=== PATIENT | female | born 1950 | race Caucasian/White ===

== ENCOUNTER 2018-05-03 18:18 | Emergency (ER) | payer MEDICARE ==
--- NOTE | 2018-05-03 18:57 | RAD ---
SINGLE VIEW OF THE CHEST AND RIGHT RIB SERIES: 05/03/18 COMPARISON: None. HISTORY: Trauma to the chest with right rib pain. FINDINGS: Single view of the chest and three views of the right ribs shows a moderate right pleural effusion. T he cardiomediastinal silhouette is normal in size. There is no evidence of consolidation or mass. Views of the ribs show no displaced rib fractures. No underlying pleural thickening or pneumothorax a re seen. IMPRESSION: 1. No evidence of displaced rib fracture. 2. Moderate right pleural effusion. POS: [facility]
[2018-05-03 21:28] LABS: #Eosinphils 0.3 thou/uL (0.0-0.7); #Lymphocytes 0.9 thou/uL (1.20-3.40); #Monocytes 0.7 thou/uL (0.11-0.59); %Basophils 0.4 % (0.0-1.0); %Eosinophils 3.1 % (0.0-10.0); %Lymphocytes 9.3 % (21.0-51.0); %Monocytes 6.6 % (0.0-10.0); %Neutrophils 80.6 % (42.0-75.0); Hypochromia SLIGHT = 6-15 cells (100X) (0-5/hpf); MDiff Complete? YES; Mean Corpuscular HGB CONC 32.1 g/dL (32.0-36.0); Mean Corpuscular Hemoglobin 23.7 pg (27.0-31.0); Mean Corpuscular Volume 73.7 fL (78.0-98.0); Mean Platelet Volume 9.5 fL (7.4-10.4); Microcytosis SLIGHT = 6-15 cells (100X) (0-5/hpf); PLT Morphology Comment Appears Adequate; Platelet Count 194 thou/uL (130-400); RBC Distribution Width 15.4 % (11.5-14.5); Red Blood Cell (RBC) Count 4.22 mill/uL (4.20-5.40); White Blood Cell (WBC) Count 9.9 thou/uL (4.8-10.8)
[2018-05-03 21:33] LABS: ALT (SGPT) 19 U/L (8-55); AST (SGOT) 29 U/L (5-34); Albumin 3.6 g/dL (3.4-4.8); Alkaline Phosphatase 202 U/L (40-150); Anion Gap 13 mmol/L (10-20); BUN (Urea Nitrogen) 16 mg/dL (9.8-20.1); Bilirubin, Total 0.5 mg/dL (0.2-1.2); Calc. Creatinine Clearance 0 mL/min (70-130); Calcium 10.1 mg/dL (7.8-10.44); Carbon Dioxide 28 mmol/L (23-31); Chloride 98 mmol/L (98-107); Estimated GFR-MDRD 51; Globulin 4.3 g/dL (2.4-3.5); Glucose 168 mg/dL (80-115); Potassium 4.3 mmol/L (3.5-5.1); Protein, Total 7.9 g/dL (6.0-8.3); Sodium 135 mmol/L (136-145)
--- NOTE | 2018-05-03 22:26 | CT ---
CT OF THE CHEST WITHOUT AND WITH CONTRAST 05/03/18 COMPARISON: None. HISTORY: Dyspnea. Right rib pain after mechanical fall where she hit her ribs on the nightstand. Persistent pa in. TECHNIQUE: Multiple contiguous axial images were obtained in a CT of the chest without and with IV contrast. Cor onal reformats were performed. FINDINGS: Soft tissue density obscures the bronchus to the right lower lobe. There is complete collapse of the right lower lobe. In the central aspect of the right lower lobe, there appears to be a hypodense mass measuring at least 4.6 cm in size. A small right pleural effusion is seen. No other pulmonary nodule s are identified. There is an enlarged subcarinal lymph node measuring 2.8 cm in greatest dimension. Other smaller medi astinal lymph nodes are seen scattered throughout the mediastinum. There are innumerable lesions scattered throughout the liver concerning for hepatic metastases. The l argest measures at least 8.4 cm in size and is only partially imaged on this exam. There is a 2.0 cm right adrenal mass. A small amount of fluid is seen adjacent to the liver. The spleen is enlarged lencho suring 15.0 cm in size. There is also a cyst measuring 2.2 cm in the spleen. There are degenerative changes in the spine. The vertebral bodies have a mixed lytic and sclerotic ap pearance. This may simply be from degenerative change, but metastatic lesions to the spine cannot be excluded. No other suspicious osseous lesions are identified. There is a small nodule in the right breast measuring 9 mm in size. This is nonspecific. IMPRESSION: 1. Large right hilar mass obstructing the right lower lobe bronchus causing collapse of the righ t lower lobe. This most likely represents a primary pulmonary malignancy. 2. Small left pleural effusion. 3. Metastatic disease to the mediastinum. 4. Hepatic metastatic disease and small amount of ascites. 5. Right adrenal mass is concerning for metastatic disease. 6. Splenomegaly. 7. Degenerative changes in the spine. Metastatic lesions to the spine cannot be excluded. POS: [facility]
[2018-05-03] MEDS ORDERED: Ondansetron ODT 4 MG TAB ONE (22:43)
--- NOTE | 2018-05-04 15:35 | EKG ---
Test Reason : RIB PAIN Blood Pressure : / mmHG Vent. Rate : 096 BPM Atrial Rate : 096 BPM P-R Int : 164 ms QRS Dur : 098 ms QT Int : 366 ms P-R-T Axes : 032 -25 045 degrees QTc Int : 462 ms Normal sinus rhythm Incomplete right bundle branch block Borderline ECG Confirmed by CARRILLO MENDEZ ([id number]), tape editor LISANDRA ALDRICH ([id number]) on 05/04/2018 3:35:00 PM Referred By: VANESSA Confirmed By:CARRILLO MENDEZ
== END 2018-05-03 22:41 | disposition home or self-care (01) ==
LOC: ERS 18:18
DX: S20.211A Contusion of right front wall of thorax, initial encounter (principal); E11.9 Type 2 diabetes mellitus without complications; E78.5 Hyperlipidemia, unspecified; I10 Essential (primary) hypertension; F41.9 Anxiety disorder, unspecified; Z79.899 Other long term (current) drug therapy; W19.XXXA Unspecified fall, initial encounter
CPT/HCPCS: 71270; 80053; 83605; 84484; 85025; 93005; Q0162

== ENCOUNTER 2018-05-13 11:23 | Emergency (ER) | payer MEDICARE ==
[2018-05-13 13:01] LABS: ALT (SGPT) 15 U/L (8-55); AST (SGOT) 31 U/L (5-34); Albumin 3.4 g/dL (3.4-4.8); Alkaline Phosphatase 195 U/L (40-150); Anion Gap 18 mmol/L (10-20); BUN (Urea Nitrogen) 26 mg/dL (9.8-20.1); Bilirubin, Total 0.6 mg/dL (0.2-1.2); CK (CPK) 103 U/L (29-168); Calc. Creatinine Clearance 0 mL/min (70-130); Calcium 9.7 mg/dL (7.8-10.44); Carbon Dioxide 20 mmol/L (23-31); Chloride 100 mmol/L (98-107); Estimated GFR-MDRD 46; Globulin 4.1 g/dL (2.4-3.5); Glucose 106 mg/dL (80-115); Lipase 14 U/L (8-78); Potassium 5.5 mmol/L (3.5-5.1); Protein, Total 7.5 g/dL (6.0-8.3); Sodium 132 mmol/L (136-145)
[2018-05-13 13:18] LABS: Hemoglobin 9.6 g/dL (12.0-16.0); Mean Corpuscular HGB CONC 31.8 g/dL (32.0-36.0); Mean Corpuscular Hemoglobin 23.3 pg (27.0-31.0); Mean Corpuscular Volume 73.1 fL (78.0-98.0); Mean Platelet Volume 10.1 fL (7.4-10.4); Platelet Count 191 thou/uL (130-400); RBC Distribution Width 15.3 % (11.5-14.5); Red Blood Cell (RBC) Count 4.13 mill/uL (4.20-5.40); White Blood Cell (WBC) Count 15.4 thou/uL (4.8-10.8)
[2018-05-13 13:20] LABS: Anisocytosis SLIGHT = 6-15 cells (100X) (0-5/hpf); Band 10 % (5-11); Hypochromia SLIGHT = 6-15 cells (100X) (0-5/hpf); Lymphocytes 3 % (21-51); MDiff Complete? YES; Monocytes 2 % (0-10); Neutrophil 85 % (42-75); PLT Morphology Comment Appears Adequate
--- NOTE | 2018-05-13 14:44 | CT ---
CT ANGIOGRAM CHEST WITH CONTRAST: Date: 05/13/18 HISTORY: Chest pain. COMPARISON: CT chest dated 07/04/17. FINDINGS: CT angiogram of the chest performed after the intravenous administration of contrast. 3D rendering pr ovided. Due to the phase of contrast, there is poor delineation of the right hilar mass, although there is ex tension to the right mainstem bronchus and all lower lobe bronchi with complete consolidation right l kirby, as well as postobstructive pneumonitis. Large right layering pleural effusion. There is extrinsi c mass effect upon the right lower lobe pulmonary artery, axial image 51, although this is not felt t o be intraluminal. No definite proximal segmental or pulmonary arterial filling defect. There are abnormal prevascular lymph nodes measuring up to 11.0 mm in short axis. There are also abno rmal right pericardial lymph nodes measuring up to 9.0 mm in short axis. There are multiple metastati c foci throughout the liver. Metastatic foci are present in the spleen. There is a mass, although small, within the inferior right breast, measuring up to 9.0 mm, similar. No acute displaced rib fracture. No suspicious osteolytic or osteoblastic lesions. IMPRESSION: 1. Due to the phase of contrast, there is portal delineation of the known right hilar mass with some probable early mediastinal invasion with extension of tumor throughout the right mainstem bronchus a nd all lower lobe bronchi with postobstructive pneumonitis and collapse, as well as a similar layerin g large right pleural effusion. There are metastatic mediastinal lymph nodes, as well as metastasis, within the liver and spleen. 2. 9.0 mm right breast mass within the inferior breast, for which a nonemergent diagnostic ultrasoun d and mammogram are recommended. 3. Extrinsic mass effect upon the posterior segment right lower lobe pulmonary artery without a defi nite intraluminal defect. This is likely sequelae of the mass effect from the underlying mass and not an embolism. There are no definite pulmonary emboli in the pulmonary arteries. 4. Nondisplaced buckle fractures right anterior 6th, 7th, and 8th ribs. 5. No intraluminal pulmonary embolism. POS: [facility]
[2018-05-13] MEDS ORDERED: Iopamidol 370 76% 100 ML VIAL ONE (17:13)
== END 2018-05-13 15:02 | disposition home or self-care (01) ==
LOC: ERS 11:23
DX: R07.89 Other chest pain (principal); E11.9 Type 2 diabetes mellitus without complications; E78.5 Hyperlipidemia, unspecified; I10 Essential (primary) hypertension; F41.9 Anxiety disorder, unspecified; Z79.899 Other long term (current) drug therapy; Z79.84 Long term (current) use of oral hypoglycemic drugs
CPT/HCPCS: 36415; 71275; 80053; 82550; 83690; 84484; 85025; 93005

== ENCOUNTER 2018-05-16 20:23 | Inpatient (IN) | payer MEDICARE ==
[2018-05-16 21:01] LABS: Mean Corpuscular HGB CONC 30.4 g/dL (32.0-36.0); Mean Corpuscular Hemoglobin 22.6 pg (27.0-31.0); Mean Corpuscular Volume 74.4 fL (78.0-98.0); Mean Platelet Volume 9.9 fL (7.4-10.4); Platelet Count 272 thou/uL (130-400); RBC Distribution Width 15.5 % (11.5-14.5); Red Blood Cell (RBC) Count 4.41 mill/uL (4.20-5.40); White Blood Cell (WBC) Count 14.6 thou/uL (4.8-10.8)
[2018-05-16 21:17] LABS: Band 9 % (5-11); Hypochromia SLIGHT = 6-15 cells (100X) (0-5/hpf); Lymphocytes 1 % (21-51); MDiff Complete? YES; Microcytosis SLIGHT = 6-15 cells (100X) (0-5/hpf); Monocytes 2 % (0-10); Neutrophil 88 % (42-75)
[2018-05-16 21:21] LABS: ALT (SGPT) 11 U/L (8-55); AST (SGOT) 18 U/L (5-34); Albumin 3.2 g/dL (3.4-4.8); Alkaline Phosphatase 248 U/L (40-150); Anion Gap 19 mmol/L (10-20); BUN (Urea Nitrogen) 32 mg/dL (9.8-20.1); Bilirubin, Total 0.5 mg/dL (0.2-1.2); Calc. Creatinine Clearance 0 mL/min (70-130); Calcium 10.2 mg/dL (7.8-10.44); Carbon Dioxide 20 mmol/L (23-31); Chloride 101 mmol/L (98-107); Estimated GFR-MDRD 62; Globulin 4.3 g/dL (2.4-3.5); Glucose 158 mg/dL (80-115); Protein, Total 7.5 g/dL (6.0-8.3); Sodium 134 mmol/L (136-145)
--- NOTE | 2018-05-16 21:55 | CT ---
CT BRAIN 05/16/18 PROVIDED CLINICAL HISTORY: Fall with altered mental status. FINDINGS: The ventricular system appears normal in size and morphology. There is no evidence for intracranial h emorrhage, or mass effect. Chronic microvascular ischemic changes are seen. The extracranial soft tis sues and osseous structures demonstrate an unremarkable CT appearance. IMPRESSION: No evidence for intracranial hemorrhage or mass effect. POS: [facility]
--- NOTE | 2018-05-16 21:57 | RAD ---
PORTABLE CHEST 05/16/18 PROVIDED CLINICAL HISTORY: Fall. FINDINGS: Comparison 04/23/[address] pulmonary angiogram of 05/13/18. The cardiac silhouette remains enlarged. There is right basilar pleural parenchymal opacity, possibly due to volume loss on the basis of known right hilar mass. The left lung appears clear. There is no evidence for pneumothorax. IMPRESSION: Cardiomegaly and right basilar pleural parenchymal opacity. Please refer to CT pulmonary angiogram re port of 05/13/18 for further details. POS: [facility]
[2018-05-16 22:23] LABS: Bilirubin Small (Negative); Blood, Urine Negative (Negative); Clarity CLOUDY (Clear); Glucose, Urine (Dipstick) Negative (Negative); Leukocyte Trace (Negative); Nitrite Negative (Negative); Protein, Urine (Dipstick) 100 mg/dL (Neg-Trace); Specific Gravity, Urine 1.022 (1.002-1.036); pH, Urine 5.5 (5.0-9.0)
[2018-05-16 22:26] LABS: Bacteria/HPF None Seen HPF (None Seen); RBC/HPF 0-3 HPF (0-3); Squamous Epithelial 0-3 HPF (0-3); WBC/HPF 0-3 HPF (0-3)
[2018-05-16 22:28] LABS: Hyaline Casts/LPF 0-3 HYALINE CAST LPF (0-3 Hyaline); Pathc Cast-AUWi Flag 4.21 (0-2.49)
[2018-05-16 22:34] LABS: Anion Gap 17 mmol/L (10-20); BUN (Urea Nitrogen) 32 mg/dL (9.8-20.1); Calc. Creatinine Clearance 0 mL/min (70-130); Calcium 9.8 mg/dL (7.8-10.44); Carbon Dioxide 21 mmol/L (23-31); Chloride 102 mmol/L (98-107); Estimated GFR-MDRD 64; Glucose 152 mg/dL (80-115); Sodium 134 mmol/L (136-145)
[2018-05-16] MEDS ORDERED: Dextrose 50% Abboject 50 ML SYRINGE ONE (22:59)
[2018-05-16] MEDS ORDERED: Insulin Regular 300 UNITS/3 ML VIAL ONE (22:59)
[2018-05-16] MEDS ORDERED: cefTRIAXone\\ROCEPHIN 2 GM VIAL ONE (22:59)
[2018-05-16] MEDS ORDERED: Calcium Chloride 1 GM/10 ML Abboject SYRINGE ONE (22:59)
[2018-05-16] MEDS ORDERED: Azithromycin 500 MG in Sodium Chloride 0.9% 250 ML 250 ML IVPB SCH (23:15)
[2018-05-17] MEDS ORDERED: Acetaminophen 325 MG TAB PO PRN (00:46)
[2018-05-17] MEDS ORDERED: Dextrose 50% Abboject 50 ML SYRINGE SLOW IVP PRN (00:50)
[2018-05-17] MEDS ORDERED: Dextrose 5% in Water 1,000 ML IV PRN (00:50)
[2018-05-17 04:09] LABS: Anion Gap 16 mmol/L (10-20); BUN (Urea Nitrogen) 31 mg/dL (9.8-20.1); Calc. Creatinine Clearance 0 mL/min (70-130); Calcium 10.2 mg/dL (7.8-10.44); Carbon Dioxide 20 mmol/L (23-31); Chloride 106 mmol/L (98-107); Estimated GFR-MDRD 64; Glucose 140 mg/dL (80-115); Potassium 5.3 mmol/L (3.5-5.1); Sodium 137 mmol/L (136-145)
--- NOTE | 2018-05-17 04:12 | HP ---
HISTORY OF PRESENT ILLNESS: A 67-year-old female with a diagnosis of bronchogenic carcinoma. She underwent bronchial biopsy performed by Dr. Rosales approximately 6 days ago. Today, she developed weakness, dizziness, lightheadedness, multiple falls, and poor p.o. intake. She has been found to have a right lower lobe mass by chest x-ray with possible pneumonia associated with this. She was also found to be hyperkalemic. There has been no report of nausea, vomiting, or diarrhea. She was seen and evaluated in the emergency room. CT scan of brain was done, which showed no evidence of new metastatic lesions. CT scan of chest done several days ago does show fractures of the right 6, 7, and 8 ribs. At this time, she has no other complaints other than feeling weak and dizzy. There has been no reported nausea or vomiting. She does have a history of type 2 diabetes mellitus. Family notes she was seen to be hallucinating this morning. She notes some coughing at this time. ALLERGIES: SHE HAS NO KNOWN ALLERGIES. CURRENT MEDICATIONS ARE: 1. Glucosamine. 2. Reglan 10 mg 3 times a day. 3. Iron 1 tablet daily. 4. Lyrica 50 mg 3 times a day. 5. Diclofenac 75 mg daily. 6. Amlodipine 5 mg daily. 7. Simvastatin 20 mg daily. 8. Atenolol 50 mg daily. 9. Glimepiride 4 mg daily. 10. Clonidine 0.2 mg q.a.m. 11. Hydrochlorothiazide 25 mg daily. 12. Potassium 10 mEq daily. 13. Tylenol No. 3 as needed for pain. 14. Zofran. 15. Metformin. 16. In addition, she is also on pioglitazone. PAST MEDICAL HISTORY: Surgical history is positive for bladder suspension, appendectomy, cholecystectomy, repair of bowel obstruction. Medical history is positive for type 2 diabetes mellitus, hyperlipidemia, hypertension. SOCIAL AND PERSONAL HISTORY: She does not smoke nor does she drink alcohol. She currently lives alone with her son nearby. REVIEW OF SYSTEMS: Noncontributory. FAMILY HISTORY: Noncontributory. PHYSICAL EXAMINATION: VITAL SIGNS: Pulse is 118, BP is 130/64, respirations 22, O2 saturation is 97% on 2 L. HEENT: Normocephalic, atraumatic. Sclerae and conjunctivae are clear. NECK: Supple. Full range of motion. No masses. LUNGS: Bilateral breath sounds. No evidence of wheezes, rhonchi, or rales. HEART: Reveals tachycardia without murmurs, gallops, or rubs. ABDOMEN: Slightly distended. Bowel sounds are present and active. No hepatosplenomegaly is noted. There is no evidence of any rebound or guarding otherwise noted. EXTREMITIES: No evidence of any clubbing, edema, or cyanosis. NEUROLOGICAL: She is alert and oriented x3. She recalls my name. She recognizes me upon examination as her physician. LABORATORY DATA: Her hemoglobin is 13.0, hematocrit 38.8, white blood count 14.6. Sodium 134, potassium 6.0, chloride 101, CO2 of 20, BUN 32, creatinine 0.9. Urinalysis, otherwise, clear. CT scan of brain, no evidence of any cranial mass or lesions. Chest x-ray reported as body of the report. Previous CT scan from May 03, 2018, on most recent visit, did show a large right hilar mass with obstructing to the right lower lobe bronchus, small pleural effusion, metastatic disease in mediastinum with hepatic metastatic disease as well, small amount of ascites. IMPRESSION: This is a 67-year-old female, 1. Was now confirmed of squamous cell carcinoma of the lung metastatic. 2. Possible postobstructive malignancy pneumonia. 3. Hyperkalemia. 4. Type 2 diabetes mellitus. 5. Hypertension. PLAN: 1. The patient will be admitted to telemetry, would be maintained on IV antibiotics and IV fluids. 2. Consult Dr. Rosales for further treatment recommendations. 3. Consult Oncology for further treatment recommendations. 4. I have discussed extensively with her and her family present. 5. Code status, she wishes to be a full DNR. She verbalizes both to me and her family without hesitation or equivocation. Job ID: [id number]
[2018-05-17 04:18] LABS: Hemoglobin 9.1 g/dL (12.0-16.0); Mean Corpuscular HGB CONC 30.5 g/dL (32.0-36.0); Mean Corpuscular Hemoglobin 22.9 pg (27.0-31.0); Mean Corpuscular Volume 75.1 fL (78.0-98.0); Mean Platelet Volume 9.7 fL (7.4-10.4); Platelet Count 294 thou/uL (130-400); RBC Distribution Width 15.5 % (11.5-14.5); Red Blood Cell (RBC) Count 3.97 mill/uL (4.20-5.40); White Blood Cell (WBC) Count 15.3 thou/uL (4.8-10.8)
[2018-05-17 04:31] LABS: Band 8 % (5-11); Eosinophils 1 % (0-10); Lymphocytes 4 % (21-51); MDiff Complete? YES; Monocytes 7 % (0-10); Neutrophil 80 % (42-75)
--- NOTE | 2018-05-17 11:33 | CON ---
DATE OF CONSULTATION: 05/17/2018 TIME SPENT: This encompassed 70 minutes of the time, of that time, greater than 50% was spent with the patient and/or the patient's unit in the hospital. HISTORY OF PRESENT ILLNESS: This is a 67-year-old female, who came to the emergency room last night with increasing shortness of breath, fever, and congestion. She has recently been diagnosed with squamous cell carcinoma of the bronchus intermedius extending into the right middle lobe. She probably has a postobstructive pneumonia from that. From what I understand, she also has lesions in the liver and nondisplaced fractures of her 6th, 7th, 8th ribs on the right. She has mediastinal lymph nodes and some splenic metastasis. PAST MEDICAL HISTORY: 1. Recent diagnosis of lung cancer. 2. Type 2 diabetes mellitus. 3. Hyperlipidemia. 4. Hypertension. PAST SURGICAL HISTORY: 1. Bladder suspension. 2. Appendectomy. 3. Cholecystectomy. 4. Repair of bowel obstruction. ALLERGIES: NONE. MEDICATIONS: Prior to admission; 1. Glucosamine. 2. Reglan. 3. Iron. 4. Lyrica. 5. Diclofenac. 6. Amlodipine. 7. Simvastatin. 8. Atenolol. 9. Glimepiride. 10. Clonidine. 11. Hydrochlorothiazide. 12. Potassium. 13. Tylenol No. 3. 14. Zofran. 15. Metformin. 16. Pioglitazone. SOCIAL HISTORY: Nonsmoker, quit about 3 years ago. Does not consume alcohol. REVIEW OF SYSTEMS: Twelve-point review of systems is otherwise negative. FAMILY MEDICAL HISTORY: Negative. PHYSICAL EXAMINATION: VITAL SIGNS: Pulse 120, blood pressure 130/64, O2 saturation 97% on 2 L, and respiratory rate 22. GENERAL: This patient is awake, alert, and in no acute distress. HEENT: Pupils are reactive. Sclerae are anicteric. Oropharynx is clear. NECK: Without adenopathy or JVD. LUNGS: Slightly diminished breath sounds on the right compared to left. CARDIAC: S1 and S2, slightly tachycardic. ABDOMEN: Obese, soft, and nontender. EXTREMITIES: No clubbing, cyanosis, or edema. NEUROLOGIC: Grossly intact throughout. LABORATORY DATA: White blood cell count 15.3, hematocrit 29.8, and platelet count 294. Sodium 137, potassium 5.3, chloride 106, CO2 of 20, BUN 31, creatinine 0.8, glucose 140, calcium 10.2, and albumin 3.2. IMAGING STUDIES: Chest x-ray shows right middle lobe infiltrate. Brain CT negative for hemorrhage or mass effect. ASSESSMENT: 1. Postobstructive pneumonia. 2. Metastatic squamous cell carcinoma of the lung. PLAN: 1. Treatment with IV antibiotics, nebulization therapy, and steroids. 2. Given his postobstructive pneumonia, I will go ahead and change the Rocephin to Zosyn to give her some anaerobic coverage. 3. Agree with Oncology consultation. 4. Gentle IV fluid resuscitation. Job ID: [id number]
[2018-05-17] MEDS: Sodium Chloride 0.9% 1,000 ML IV SCH (12:00)
[2018-05-17] MEDS ORDERED: Ondansetron ODT 4 MG TAB ONE (12:45)
[2018-05-17] MEDS ORDERED: Sodium Chloride 0.9% 100 ML ONE (12:45)
[2018-05-17] MEDS ORDERED: Piperacillin/Tazobactam 3.375 GM VIAL ONE (12:45)
[2018-05-17] MEDS: Piperacillin/Tazobactam 3.375 GM in Sodium Chloride 0.9% 100 ML IVPB SCH ×2 (12:57→18:22)
[2018-05-17] MEDS: Ondansetron ODT 4 MG TAB PO PRN ×2 (12:59→19:17)
[2018-05-17 15:49] LABS: Anion Gap 17 mmol/L (10-20); BUN (Urea Nitrogen) 27 mg/dL (9.8-20.1); Calc. Creatinine Clearance 84 mL/min (70-130); Calcium 10.4 mg/dL (7.8-10.44); Carbon Dioxide 23 mmol/L (23-31); Chloride 103 mmol/L (98-107); Estimated GFR-MDRD 70; Glucose 170 mg/dL (80-115); Potassium 4.8 mmol/L (3.5-5.1); Sodium 138 mmol/L (136-145)
[2018-05-17] MEDS: Insulin Regular 300 UNITS/3 ML VIAL SC PRN ×2 (18:15→21:04)
[2018-05-17] MEDS ORDERED: Amlodipine 5 MG TAB PO SCH (20:00)
[2018-05-17] MEDS ORDERED: cloNIDine 0.2 MG TAB PO SCH (20:00)
--- NOTE | 2018-05-17 21:46 | PRG ---
DATE OF SERVICE: 05/17/2018 SUBJECTIVE: Ms. Sanchez is resting comfortably. She unfortunately has not been able to get in the hospital bed. OBJECTIVE: VITAL SIGNS: Temperature 97.7, pulse 100, respirations 20, O2 saturations 95% on 2 L, and blood pressure 159/95. LUNGS: Clear. HEART: Reveals no murmur. LABORATORY DATA: Hemoglobin is 9.1, hematocrit 29.8. Potassium 5.3. Glucoses are adequately controlled. IMPRESSION: 1. Metastatic squamous cell carcinoma, lung. 2. Obstructive pneumonia. PLAN: I have discussed the findings with the patient. She is fully aware of the nature of the disease. We will get Oncology consult. Continue current antibiotic regimen. Pulmonary has been advised to see her. Hopefully, we can get her bed soon. Job ID: [id number]
--- NOTE | 2018-05-17 22:35 | CON ---
DATE OF CONSULTATION: REASON FOR CONSULT: Lung cancer. HISTORY OF PRESENT ILLNESS: Ms. Sanchez is a pleasant 67-year-old female who had a bronchoscopy approximately six days ago. Bronchial washing was positive for squamous cell carcinoma. She presented to the emergency room today with altered mental status and weakness. She was diagnosed with postobstructive pneumonia. The patient was initially seen by Dr. Rosales in late 2018. She was noted to have a right hilar mass and a biopsy was obtained by fiberoptic bronchoscopy from bronchial washings. The patient does have a history of tobacco use. She quit in 2015. 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 She denies any shortness of breath. No weight loss. She does complain of increasing abdominal girth. She had a recent chest CT scan showed the right hilar mass with extension to the right mainstem bronchus. There was a large right pleural effusion and metastatic lesions seen throughout the liver and the spleen. There was also a 9 mm right breast mass. PAST MEDICAL HISTORY: 1. Diabetes. 2. Hyperlipidemia. 3. Hypertension. 4. Fibromyalgia. 5. Fallopian tube carcinoma. PAST SURGICAL HISTORY: 1. Hysterectomy. 2. Open cholecystectomy. 3. Appendectomy. 4. Bladder suspension. ALLERGIES: NO KNOWN DRUG ALLERGIES. HOME MEDICATIONS: 1. Reglan t.i.d. 2. Iron daily. 3. Lyrica t.i.d. 4. Diclofenac 75 mg daily. 5. Amlodipine daily. 6. Simvastatin daily. 7. Atenolol daily. 8. Glimepiride daily. 9. Clonidine daily. 10. Hydrochlorothiazide daily. 11. Potassium 10 mEq daily. 12. Metformin daily. FAMILY HISTORY: No immediate family history of cancer. SOCIAL HISTORY: . History of smoking. No alcohol or illicit drug use. REVIEW OF SYSTEMS: 10-point review of systems is negative except for noted in the HPI. PHYSICAL EXAMINATION: VITAL SIGNS: Temperature is 98.4, pulse is 110, respiratory rate 20, BP is 185/ 82, she is 98% on 2 L. GENERAL: Well-developed, well-nourished female in no acute distress. HEENT: Normocephalic, atraumatic. Pupils equal and reactive to light. NECK: Supple. CV: Has a regular rate and rhythm. LUNGS: Clear anteriorly. ABDOMEN: Distended. Bowel sounds are positive. There is no hepatosplenomegaly. EXTREMITIES: No clubbing, cyanosis, or edema. SKIN: No rash. HEMATOLOGICAL: No petechiae or purpura. NEUROLOGICAL: Nonfocal. PSYCH: The patient is alert, oriented and appropriate. PERTINENT LABS AND AND X-RAYS: Current WBCs 15.3, hemoglobin 9.1, hematocrit 29.8, platelet count is 294,000, 80% neutrophils, 4% lymphocytes. Sodium is 138, potassium 4.8, chloride is 103, CO2 is 23, BUN is 27, creatinine 0.81, calcium is 10.4, serum total protein is 7.5, albumin 3.2, globulin 4.3. Radiology per HPI. ASSESSMENT: 1. Non-small cell lung cancer, squamous type. 2. Postobstructive pneumonia. DISCUSSION: The patient has been started on antibiotics. She has no respiratory distress at this time. Her biopsy was obtained from bronchial washings. so unfortunately, there is not adequate issue for molecular testing. We discussed a CT-guided biopsy of her liver in order to get tissue required for molecular testing as this is significant for treatment. She has agreed. Plan tomorrow if possible, otherwise on Monday. She will then follow up in the outpatient setting to discuss treatment options. Discussed with Dr. Daley who will see the patient later today. Thank you for the consult. Job ID: [id number] [facility]PITALJake
[2018-05-17] MEDS ORDERED: cefTRIAXone\\ROCEPHIN 1 GM in Sodium Chloride 0.9% 100 ML IVPB SCH (23:00)
[2018-05-18] MEDS: Piperacillin/Tazobactam 3.375 GM in Sodium Chloride 0.9% 100 ML IVPB SCH ×4 (00:58→18:24)
[2018-05-18 05:35] LABS: INR-International Normal Ratio 1.3; PTT 49.8 SEC (22.9-36.1); Prothrombin Time 16.4 SEC (12.0-14.7)
[2018-05-18] MEDS: Sodium Chloride 0.9% 1,000 ML IV SCH ×2 (06:04→17:22)
[2018-05-18] MEDS: Pioglitazone HCl 15 MG TAB PO SCH (08:31)
[2018-05-18] MEDS: Amlodipine 5 MG TAB PO SCH (08:31)
[2018-05-18] MEDS: Glimepiride 4 MG TAB PO SCH ×2 (08:31→21:00)
[2018-05-18] MEDS ORDERED: Non-Formulary Item 1 EACH (Esomeprazole Magnesium [Nexium 24hr] 40 MG) PO SCH (09:00)
[2018-05-18] MEDS ORDERED: Non-Formulary Item 1 EACH (Pioglitazone Hcl [Pioglitazone Hcl] 30 MG) PO SCH (09:00)
--- NOTE | 2018-05-18 10:57 | MRI ---
MRI BRAIN WITH AND WITHOUT CONTRAST: Date: 05-18-18 Comparison: None. History: Metastatic lung cancer, headache, imbalance. Technique: Multiplanar, multisequence MR imaging of the brain is obtained with and without contrast. FINDINGS: The diffusion weighted imaging demonstrates no evidence for acute infarction. The axial gradient echo imaging demonstrates no evidence for intracranial hemorrhage. Numerous foci of increased T2 and FLAIR signal are seen within the periventricular, deep, and subcort ical white matter, evidence of small vessel disease. Similar patchy increased signal is seen within t he mela. There is mild diffuse cerebral volume loss with associated prominence or CFF containing spac es. There is mild mucosal thickening involving the alveolar recess of the maxillary sinus on the left . Arterial flow voids at the axial level of the skull base appear unremarkable on the T2 weighted imagi ng. The post contrast imaging demonstrates no abnormal enhancement within the brain parenchyma. IMPRESSION: 1. Small vessel disease and cerebral volume loss. No acute infarction, intracranial hemorrhage or int racranial mass lesion. POS: [facility]
[2018-05-18] MEDS: Ondansetron ODT 4 MG TAB PO PRN ×2 (10:58→18:24)
[2018-05-18] MEDS ORDERED: Iopamidol 370 76% 100 ML VIAL ONE (11:25)
--- NOTE | 2018-05-18 11:54 | PRG ---
DATE OF SERVICE: 05/18/2018 SUBJECTIVE: She is nauseated and having emesis. She states her breathing is better. OBJECTIVE: VITAL SIGNS: Temperature 97.6, pulse 102, respirations 16, O2 saturation 92% on room air, blood pressure 152/72. HEENT: Unremarkable. NECK: No JVD. LUNGS: Diminished breath sounds at right base compared to left. CARDIAC: S1, S2. Regular. ABDOMEN: Soft. EXTREMITIES: No edema. IMAGING DATA: Her brain MRI demonstrated no evidence of mass lesion. LABORATORY DATA: White blood cell count 15.3, hematocrit 29.8, and platelet count 294. ASSESSMENT: Postobstructive pneumonia, squamous cell carcinoma of the lung. PLAN: Continue antibiotics, steroids, nebulization treatments. Job ID: [id number]
[2018-05-18] MEDS: Insulin Regular 300 UNITS/3 ML VIAL SC PRN (12:35)
--- NOTE | 2018-05-18 14:48 | PRG ---
DATE OF SERVICE: 05/18/2018 SUBJECTIVE: Ms. Sanchez is now in her hospital room. She is resting fairly comfortably. No other medical complaints are noted. OBJECTIVE: VITAL SIGNS: Her blood pressure is 171/77, O2 sat is 96% on 1.5 L, and temperature 98.8. LUNGS: Reveal bilateral breath sounds. HEART: Reveals a regular rate and rhythm. No murmurs, gallops, or rubs. LABORATORY DATA: Potassium is now 4.8. Blood sugars were adequately controlled. They were slightly elevated due to the fact that she probably on steroids. IMPRESSION: 1. Metastatic squamous cell carcinoma. 2. Type 2 diabetes mellitus. PLAN: She is to undergo a percutaneous liver biopsy today for further evaluation. Once all those information can be gathered, she will be making decisions regarding her future care. Otherwise, she is to continue her current medications, antibiotic, steroids, breathing treatments. Job ID: [id number]
--- NOTE | 2018-05-18 15:44 | CT ---
CT OF THE ABDOMEN AND PELVIS WITH CONTRAST: Date: 05/18/18 COMPARISON: 05/13/18, 06/16/15. HISTORY: Lung cancer with hepatic masses seen on CT. TECHNIQUE: Multiple contiguous axial images were obtained in a CT of the abdomen and pelvis with contrast. PO co ntrast was administered. Coronal reformats were performed. FINDINGS: There are numerous scattered masses seen throughout the liver, measuring up to 7.0 cm in size. These are consistent with hepatic metastases. There is a small amount of ascites adjacent to the liver and in the pelvis. A hypodensity in the spleen measuring 2.4 cm in size is well circumscribed and may rep resent a cyst. There is a nonobstructing 1-2 mm calcification in the right kidney. The left kidney, l eft adrenal gland, and pancreas are unremarkable. There is a right adrenal mass measuring approximate ly 2.2 cm in size. The large and small bowel are unremarkable. There are a few nodules anterior to the left colon measur ing up to 1.3 cm in size. These are nonspecific. No enlarged retroperitoneal lymph nodes are seen. At herosclerotic calcifications are seen in the aorta. There is atelectasis at the right lung base and a mass in the right hilar region. A small right pleur al effusion is present. Degenerative changes are seen in the spine. No obvious focal metastatic lesio ns are seen in the skeleton. The abdominal wall soft tissues are unremarkable. IMPRESSION: 1. Multiple hepatic metastatic lesions. 2. Right adrenal metastasis. 3. Possible splenic cysts. 4. Nonobstructing right renal calcification. 5. Nonspecific nodules anterior to the left colon, could potentially represent metastases. These are nonspecific. These were not seen on the prior CT of the abdomen from 2016. 6. Right hilar lung mass with collapse of right lower lobe and pleural effusion, consistent with pat ient's diagnosis of lung cancer. POS: [facility]
[2018-05-18] MEDS: HYDROcodone/Acetaminophen 5/325 mg Tablet PO PRN (21:00)
[2018-05-18] MEDS: cloNIDine 0.2 MG TAB PO SCH (21:00)
[2018-05-19] MEDS: Piperacillin/Tazobactam 3.375 GM in Sodium Chloride 0.9% 100 ML IVPB SCH ×4 (01:17→18:10)
[2018-05-19 06:00] LABS: Anion Gap 16 mmol/L (10-20); BUN (Urea Nitrogen) 18 mg/dL (9.8-20.1); Calc. Creatinine Clearance 89 mL/min (70-130); Carbon Dioxide 20 mmol/L (23-31); Chloride 106 mmol/L (98-107); Estimated GFR-MDRD 75; Glucose 135 mg/dL (80-115); Sodium 137 mmol/L (136-145)
[2018-05-19] MEDS: Sodium Chloride 0.9% 1,000 ML IV SCH ×2 (06:08→20:18)
[2018-05-19] MEDS: HYDROcodone/Acetaminophen 5/325 mg Tablet PO PRN ×4 (06:18→20:12)
[2018-05-19] MEDS: Ondansetron ODT 4 MG TAB PO PRN ×2 (06:19→16:16)
[2018-05-19] MEDS: Amlodipine 5 MG TAB PO SCH (08:09)
[2018-05-19] MEDS: Glimepiride 4 MG TAB PO SCH ×2 (08:09→20:11)
[2018-05-19] MEDS: Pioglitazone HCl 15 MG TAB PO SCH (08:10)
--- NOTE | 2018-05-19 10:01 | PRG ---
DATE OF SERVICE: 05/19/2018 PRIMARY CARE PHYSICIAN: Dr. Macho Mascorro. SUBJECTIVE: The patient appears comfortable. She complains of some left chest wall tenderness, likely secondary to when her son tried to lift her up off the floor. Denies other chest pain or shortness of breath. She is tolerating her diet. She is ambulating in the room with minimal difficulty. OBJECTIVE: VITAL SIGNS: Temperature 98.3, pulse is 79, respirations 18 to 20, blood pressure 151/70, and pulse ox 94% on 1 L nasal cannula. GENERAL: She is awake and alert, in no acute distress. HEENT: Mucosa is moist. NECK: Supple. HEART: Regular rate and rhythm. LUNGS: Decreased breath sounds on the right. ABDOMEN: Soft. EXTREMITIES: No edema. LABORATORY DATA: Sodium 137, potassium 5.0, chloride 106, CO2 of 20, BUN and creatinine 18 and 0.76 with a GFR of 75, serum glucose of 135, calcium 10.0. Abdominal and pelvic CT once again reveals multiple areas of metastatic lesions in the liver, right adrenal, left colon, and again right hilar lung mass with collapse of the right lower lobe. Brain MRI also revealing small-vessel disease. No infarction. No hemorrhages. No intracranial mass is seen. ASSESSMENT AND PLAN: 1. This is a 67-year-old female patient of Dr. Macho Mascorro with a new diagnosis of non-small cell lung cancer, squamous type, and postobstructive pneumonia. We will continue antibiotics and treatment for her pneumonia. 2. Lung cancer. Further plan per Oncology, planning for possible liver biopsy on Monday. 3. Type 2 diabetes, appears to be stable. Continue therapies. Job ID: [id number]
--- NOTE | 2018-05-19 13:13 | PRG ---
DATE OF SERVICE: 05/19/2018 SUBJECTIVE: Still having difficulty breathing, coughing, and some dark yellow sputum. OBJECTIVE: VITAL SIGNS: Temperature was 98, blood pressure 151/70, and respirations 18. CHEST: Decreased breath sounds. No wheezing. CARDIAC: Normal S1 and S2. No gallops. ABDOMEN: No masses. IMPRESSION: Pneumonia and metastatic squamous cell carcinoma. PLAN: She is on neb treatments, empiric antibiotics, and steroids. She will continue. PT has been ordered. Job ID: [id number]
[2018-05-19] MEDS: cloNIDine 0.2 MG TAB PO SCH (20:10)
[2018-05-20] MEDS: HYDROcodone/Acetaminophen 5/325 mg Tablet PO PRN ×5 (00:27→20:19)
[2018-05-20] MEDS: Piperacillin/Tazobactam 3.375 GM in Sodium Chloride 0.9% 100 ML IVPB SCH ×5 (00:28→23:54)
[2018-05-20] MEDS: Ondansetron ODT 4 MG TAB PO PRN ×2 (05:27→16:19)
[2018-05-20] MEDS: Amlodipine 5 MG TAB PO SCH (09:05)
[2018-05-20] MEDS: Glimepiride 4 MG TAB PO SCH ×2 (09:05→20:20)
--- NOTE | 2018-05-20 09:36 | PRG ---
DATE OF SERVICE: 05/20/2018 PRIMARY CARE PHYSICIAN: Macho Mascorro MD SUBJECTIVE: The patient complains of some shortness of breath at times. She states that she continues to have some left-sided chest wall tenderness. She continues to ambulate in the room. No fevers or chills. Cough appears to be improved. OBJECTIVE: VITAL SIGNS: Temperature 98, pulse of 90, respirations 15 to 24, blood pressure 166 to 195 over 74 to 99, pulse ox of 89 to 94 on 2 L nasal cannula. GENERAL: She is awake and alert. Appears fatigued. No acute distress. Mucosa is moist. NECK: Supple. HEART: Regular rate and rhythm. LUNGS: Decreased breath sounds, worse on the right side. Some scattered rhonchi. Chest wall is tender on the left lateral aspect. ABDOMEN: Soft. EXTREMITIES: With no edema. LABORATORY DATA: Accu-Cheks are 145, 159, 161, 164. Chest x-ray, brain MRI, abdominal and pelvis CT reviewed. ASSESSMENT AND PLAN: 1. A 67-year-old female patient admitted for pneumonia with new diagnosis of non-small cell lung cancer and postobstructive pneumonia. Continue antibiotics. 2. Lung cancer. Further plan per Oncology. Multiple metastatic lesions, possible liver biopsy tomorrow. 3. Type 2 diabetes. We will continue her therapies 1st with insulin sliding scale while she is on her steroid therapy. 4. Hypertension. Continue medications. We will increase her medications for better control. Job ID: [id number]
[2018-05-20] MEDS ORDERED: Lorazepam 2 MG/ML VIAL SLOW IVP SCH (09:45)
[2018-05-20] MEDS ORDERED: Losartan 25 MG TAB PO SCH (09:45)
[2018-05-20] MEDS: Sodium Chloride 0.9% 1,000 ML IV SCH (10:52)
[2018-05-20] MEDS: Pioglitazone HCl 15 MG TAB PO SCH (10:59)
--- NOTE | 2018-05-20 13:00 | PRG ---
DATE OF SERVICE: 05/20/2018 SUBJECTIVE: Elva Sanchez is better. She is nauseated, but better. She is able to tolerate Ensure. No headache. No cough. OBJECTIVE: VITAL SIGNS: Saturations are 98% on 1 L, pulse 60, temperature 98, blood pressure is 195/99. CHEST: Decreased breath sounds without any wheezing. CARDIAC: Normal S1 and S2. ABDOMEN: Negative mass. IMPRESSION: Metastatic lung cancer. Nausea and vomiting, improved. PLAN: She can probably switch over to oral antibiotics in the next day or two. Disposition, home thereafter. Job ID: [id number]
[2018-05-20] MEDS: cloNIDine 0.2 MG TAB PO SCH (20:20)
[2018-05-20] MEDS: hydrALAZINE 20 MG/ML VIAL SLOW IVP PRN (21:21)
[2018-05-21] MEDS: HYDROcodone/Acetaminophen 5/325 mg Tablet PO PRN ×6 (00:01→23:32)
[2018-05-21] MEDS: hydrALAZINE 20 MG/ML VIAL SLOW IVP PRN ×6 (00:24→20:42)
[2018-05-21] MEDS: Sodium Chloride 0.9% 1,000 ML IV SCH ×2 (01:27→18:24)
[2018-05-21 05:15] LABS: ALT (SGPT) 19 U/L (8-55); AST (SGOT) 20 U/L (5-34); Albumin 3.1 g/dL (3.4-4.8); Alkaline Phosphatase 181 U/L (40-150); Anion Gap 14 mmol/L (10-20); BUN (Urea Nitrogen) 19 mg/dL (9.8-20.1); Bilirubin, Total 0.4 mg/dL (0.2-1.2); Calc. Creatinine Clearance 91 mL/min (70-130); Calcium 9.2 mg/dL (7.8-10.44); Carbon Dioxide 24 mmol/L (23-31); Chloride 105 mmol/L (98-107); Estimated GFR-MDRD 78; Globulin 3.4 g/dL (2.4-3.5); Glucose 176 mg/dL (80-115); Potassium 4.1 mmol/L (3.5-5.1); Protein, Total 6.5 g/dL (6.0-8.3); Sodium 139 mmol/L (136-145)
[2018-05-21 05:19] LABS: Band 1 % (5-11); Hemoglobin 9.6 g/dL (12.0-16.0); Hypochromia SLIGHT = 6-15 cells (100X) (0-5/hpf); Lymphocytes 2 % (21-51); MDiff Complete? YES; Mean Corpuscular HGB CONC 31.4 g/dL (32.0-36.0); Mean Corpuscular Hemoglobin 22.9 pg (27.0-31.0); Mean Corpuscular Volume 73.1 fL (78.0-98.0); Mean Platelet Volume 8.8 fL (7.4-10.4); Microcytosis SLIGHT = 6-15 cells (100X) (0-5/hpf); Monocytes 4 % (0-10); Neutrophil 93 % (42-75); Platelet Count 309 thou/uL (130-400); Platelet Morphology Comment Appears Adequate; White Blood Cell (WBC) Count 25.8 thou/uL (4.8-10.8)
[2018-05-21] MEDS: Piperacillin/Tazobactam 3.375 GM in Sodium Chloride 0.9% 100 ML IVPB SCH ×4 (05:57→23:27)
[2018-05-21] MEDS ORDERED: Lorazepam 1 MG TAB PO SCH (08:00)
[2018-05-21] MEDS: Losartan 25 MG TAB PO SCH (09:21)
[2018-05-21] MEDS: Pioglitazone HCl 15 MG TAB PO SCH (09:21)
[2018-05-21] MEDS: Glimepiride 4 MG TAB PO SCH ×2 (09:21→20:27)
[2018-05-21] MEDS: Amlodipine 5 MG TAB PO SCH (09:22)
--- NOTE | 2018-05-21 09:48 | CON ---
DATE OF CONSULTATION: 05/21/2018 SUBJECTIVE: Ms. Sanchez is doing well today. She will be undergoing liver biopsy. She is breathing better. She has no other medical complaints. OBJECTIVE: VITAL SIGNS: Blood pressure 155/69, pulse 110, respirations 18, and on 2 L of 93% O2 saturation. LUNGS: Clear with bilateral breath sounds. HEART: Reveals no murmur. ABDOMEN: Soft. LABORATORY DATA: Her white blood count is 25.8, hemoglobin 9.6, hematocrit 30.7. Chemistry; sodium 139, potassium 4.1, BUN 19, and creatinine 0.74. IMPRESSION: 1. Metastatic lung cancer. 2. Postobstructive bronchopneumonia. PLAN: The patient is doing better. She possibly could be discharged as early as tomorrow with followup as an [facility]. Job ID: [id number]
[2018-05-21] MEDS ORDERED: Midazolam HCl 2 mg/2 ml Vial ONE (10:51)
[2018-05-21] MEDS ORDERED: Fentanyl 100 MCG/2 ML VIAL ONE (10:51)
[2018-05-21] MEDS ORDERED: Sodium Bicarbonate 2.5 MEQ/5 ML VIAL ONE (10:52)
[2018-05-21 11:33] VITALS: BMI 32.4
[2018-05-21] MEDS: ALPRAZolam 0.5 MG TAB PO PRN (12:42)
[2018-05-21] MEDS: cloNIDine 0.2 MG TAB PO SCH (20:27)
--- NOTE | 2018-05-21 20:35 | PRG ---
DATE OF SERVICE: 05/21/2018 SUBJECTIVE: Laura did well. She is tentatively on the schedule for liver biopsy, but it was canceled because of hypertension today. I have suggested her p.r.n. and routine medicine, therefore blood pressure will be better controlled tomorrow. OBJECTIVE: LUNGS: Remarkable for decreased breath sounds at the right base. HEART: Regular rhythm. ABDOMEN: Soft. LABORATORY STUDIES: White count 25.8, hemoglobin 9.6, and platelets 309,000. Electrolytes were normal today. Creatinine was normal. IMPRESSION: 1. Postobstructive pneumonitis. 2. Hypertension, normally well controlled. 3. Squamous cell carcinoma, stage IV, where tissues needed for immunotherapy markers. Plan, biopsies once blood pressure is controlled. Job ID: [id number]
[2018-05-21] MEDS: cloNIDine 0.1 MG TAB PO PRN (23:32)
[2018-05-22] MEDS: hydrALAZINE 20 MG/ML VIAL SLOW IVP PRN ×2 (04:40→08:54)
[2018-05-22] MEDS: HYDROcodone/Acetaminophen 5/325 mg Tablet PO PRN (04:48)
[2018-05-22] MEDS: Sodium Chloride 0.9% 1,000 ML IV SCH ×2 (05:14→20:43)
[2018-05-22] MEDS: cloNIDine 0.1 MG TAB PO PRN ×3 (05:15→16:08)
[2018-05-22] MEDS: Piperacillin/Tazobactam 3.375 GM in Sodium Chloride 0.9% 100 ML IVPB SCH ×3 (05:16→17:47)
[2018-05-22] MEDS: Amlodipine 5 MG TAB PO SCH (07:52)
[2018-05-22] MEDS: cloNIDine 0.1 MG TAB PO SCH (07:52)
[2018-05-22] MEDS: Glimepiride 4 MG TAB PO SCH ×2 (07:53→20:44)
[2018-05-22] MEDS: Hydrochlorothiazide 25 MG TAB PO SCH (07:53)
[2018-05-22] MEDS: Losartan 25 MG TAB PO SCH (07:53)
[2018-05-22] MEDS: Pioglitazone HCl 15 MG TAB PO SCH (08:57)
[2018-05-22] MEDS: ALPRAZolam 0.5 MG TAB PO PRN ×2 (13:45→19:18)
[2018-05-22] MEDS ORDERED: Sodium Bicarbonate 2.5 MEQ/5 ML VIAL ONE (13:52)
--- NOTE | 2018-05-22 15:57 | CT ---
CT GUIDED LIVER MASS BIOPSY: History: Multiple liver masses. FINDINGS: After explaining the procedure and answering all questions, limited CT imaging of the upper abdomen w as performed. Sterile technique, buffered local anesthesia, CT guidance, and a left anterior approach were used to carefully advance the tip of a 17 gauge trocar needle to the hypodense mass within the left liver lobe. Position was confirmed with CT imaging. A total of three 18 gauge 3 cm core specimens were obtained and eventually submitted to pathology for evaluation. Needle was removed. Post procedure imaging shows no evidence of complication. Patient to lerated the procedure well and was returned in unchanged condition. IMPRESSION: Technically successful CT guided liver mass biopsy. Pathology is pending. POS: ROSOEVELT
--- NOTE | 2018-05-22 20:01 | PRG ---
DATE OF SERVICE: 05/22/2018 SUBJECTIVE: Ms. Sanchez is scheduled to have liver biopsy done yesterday, however, it was not accomplished due to hypertension. She states she is feeling okay right now. She is anxious to get the procedure done, so she can go home. She has no other medical complaints. OBJECTIVE: VITAL SIGNS: Blood pressure is 163/71, pulse 98, and temperature 97.7. LUNGS: Clear bilaterally. HEART: Reveals a regular rate and rhythm. No murmurs, gallops, or rubs. LABORATORY DATA: Blood cultures negative thus far. IMPRESSION: 1. Metastatic squamous cell carcinoma of the lung. 2. Obstructive pneumonia secondary to above. PLAN: The patient is scheduled for liver biopsy today for further tissue. Continue current treatment plan at this time. Job ID: [id number]
[2018-05-22] MEDS: cloNIDine 0.2 MG TAB PO SCH (20:44)
[2018-05-22] MEDS: Insulin Regular 300 UNITS/3 ML VIAL SC PRN (20:45)
[2018-05-23] MEDS: cloNIDine 0.1 MG TAB PO PRN (00:14)
[2018-05-23] MEDS: Piperacillin/Tazobactam 3.375 GM in Sodium Chloride 0.9% 100 ML IVPB SCH ×3 (00:16→11:30)
[2018-05-23] MEDS: HYDROcodone/Acetaminophen 5/325 mg Tablet PO PRN ×3 (00:20→08:41)
[2018-05-23] MEDS: ALPRAZolam 0.5 MG TAB PO PRN ×2 (02:49→11:30)
[2018-05-23] MEDS: Insulin Regular 300 UNITS/3 ML VIAL SC PRN (06:08)
[2018-05-23] MEDS: Glimepiride 4 MG TAB PO SCH (08:35)
[2018-05-23] MEDS: Pioglitazone HCl 15 MG TAB PO SCH (08:35)
[2018-05-23] MEDS: Amlodipine 5 MG TAB PO SCH (08:35)
[2018-05-23] MEDS: Hydrochlorothiazide 25 MG TAB PO SCH (08:35)
[2018-05-23] MEDS: Losartan 25 MG TAB PO SCH (08:36)
[2018-05-23] MEDS: cloNIDine 0.1 MG TAB PO SCH (08:36)
[2018-05-23] MEDS: hydrALAZINE 20 MG/ML VIAL SLOW IVP PRN ×3 (08:43→11:33)
[2018-05-23 08:44] VITALS: TEMP 97.4
[2018-05-23 10:31] VITALS: BP 164/72
[2018-05-23] MEDS ORDERED: HYDROcodone/Acetaminophen 5/325 mg Tablet PO PRN (11:46)
[2018-05-23] MEDS: Sodium Chloride 0.9% 1,000 ML IV SCH (13:02)
--- NOTE | 2018-05-23 14:25 | PRG ---
DATE OF SERVICE: 05/23/2018 SUBJECTIVE: Ms. Sanchez has undergone a liver biopsy. She reports no complaints. OBJECTIVE: VITAL SIGNS: Temperature 98.4, pulse 80, respirations 25. She is on 3% nasal cannula, blood pressure 154/60. LUNGS: Bilateral breath sounds. HEART: Reveals no murmur. EXTREMITIES: No clubbing, edema, or cyanosis. IMPRESSION: 1. Metastatic squamous cell carcinoma. 2. Hypertension. 3. Type 2 diabetes mellitus. PLAN: We will probably proceed with discharge today. We will give room air O2 saturation. She will probably need home oxygen. We will discharge later this morning, if stable. Job ID: [id number]
--- NOTE | 2018-05-24 03:53 | DIS ---
DATE OF ADMISSION: 05/16/2018 DATE OF DISCHARGE: 05/23/2018 DISCHARGE DIAGNOSES: 1. Metastatic squamous cell carcinoma of the lung. 2. Obstructive pneumonia secondary to metastatic squamous cell carcinoma of the right lower lung. 3. Hypertension. 4. Type 2 diabetes mellitus. CONSULTING PHYSICIANS: 1. Pineda Daley MD. 2. Horace Rosales MD. HOSPITAL SUMMARY: A 67-year-old female who recently was diagnosed with right lower lobe mass shown in bronchoscopy by Dr. Rosales. She was admitted to the hospital due to increasing shortness of breath, change in mental status. She was found to be hyperkalemic, found to have possible pneumonia, postobstructive bronchopneumonia probably secondary to cancer. She was placed on IV antibiotics. Her hyperkalemia was corrected with fluids. The patient did respond well to therapy. Further consults were obtained from Oncology, as well as Pulmonology. This did reveal metastatic lung cancer. She underwent further liver biopsy for further determination of her disease status. The patient seemed to indicate that she really would not have any further aggressive therapy. She continued to progress well. Her O2 sats were fairly normal on oxygen at 3 L. By 05/23/2018, she could be discharged to [facility]. She was still unsure of the status of how aggressive she would like to be. DISCHARGE MEDICATIONS: At the time of discharge were, 1. Tylenol as needed for pain. 2. [place] 5/325 as needed for pain. 3. DuoNeb 4 times daily. 4. Xanax 0.5 mg q.i.d. p.r.n. anxiety. 5. Amlodipine 10 mg daily. 6. Catapres 0.2 mg daily. 7. Glimepiride 4 mg b.i.d. 8. Hydrochlorothiazide 25 mg daily. 9. Losartan 50 mg daily. 10. Prednisone 10 mg daily. 11. Pantoprazole 40 mg daily. 12. Pioglitazone 30 mg daily. 13. Amitriptyline 50 mg at bedtime. 14. Diclofenac 75 mg b.i.d. 15. Lyrica 50 mg t.i.d. 16. Metformin 850 mg 3 tablets daily. 17. Atenolol 50 mg daily. FOLLOWUP: She will be seen in followup at the [facility]. Her care will be transferred to Dr. Cai. She does have an oncology followup appointment. Job ID: [id number]
== END 2018-05-23 16:18 | DRG 180 ==
LOC: ERS 20:23 → ERHOLD 23:00 → 2NO 05-17 14:59 → ONC 05-19 14:07
PROVIDERS: ADMIT Family Medicine; ATTEND Family Medicine
PROC: 0FB23ZX Excision of Left Lobe Liver, Percutaneous Approach, Diagnostic (ICD-10-PCS; principal; 2018-05-22)
DX: C34.91 Malignant neoplasm of unspecified part of right bronchus or lung (principal); J18.9 Pneumonia, unspecified organism; C78.89 Secondary malignant neoplasm of other digestive organs; E87.5 Hyperkalemia; E78.5 Hyperlipidemia, unspecified; I10 Essential (primary) hypertension; E11.42 Type 2 diabetes mellitus with diabetic polyneuropathy; R16.0 Hepatomegaly, not elsewhere classified; M79.7 Fibromyalgia; Z79.84 Long term (current) use of oral hypoglycemic drugs; Z87.891 Personal history of nicotine dependence; Z90.49 Acquired absence of other specified parts of digestive tract
CPT/HCPCS: 36415; 36416; 47000; 51701; 70450; 70553; 71045; 71275; 74177; 77002; 80048; 80053; 81003; 81015; 82550; 83605; 83690; 84443; 84484; 85007; 85025; 85027; 85610; 85730; 87040; 87086; 87804; 88307; 90471; 90662; 93005; 94640; 96361; 96365; 96367; 96375; A4353; G0008; J0360; J0456; J0696; J1815; J2250; J2543; J2920; J3010; J7050; J7620; Q0162